=== PATIENT | male | born 1990 | race Two or more races ===

== ENCOUNTER 2020-10-26 23:47 | Emergency (ER) | payer OTHER, SELFPAY ==
[2020-10-27 00:07] VITALS: BP 109/59; PULSE 68; RESP 16; TEMP 36.7; O2SAT 97; BMI 33.4
[2020-10-27 02:00] VITALS: BP 110/88; PULSE 68; RESP 16; TEMP 36.7; O2SAT 97
--- NOTE | 2020-10-27 03:21 | ED.DENTAL ---
HPI - Dental/Oral General Chief complaint: Dental/Oral Stated complaint: Dental Pain Time Seen by Provider: 10/27/20 03:19 Source: patient Mode of arrival: ambulatory History of Present Illness HPI Narrative: 30-year-old male presents with dental pain and noted right lower jaw swelling without trismus and noted partial eruption of right lower wisdom tooth and what appears to be particulate matter underneath the gum tissue likely contributing to patient's symptoms. He otherwise denies any fevers or chills and states that is primary care provider already placed him on antibiotics. Related Data Allergies Allergy/AdvReac Type Severity Reaction Status Date / Time No Known Allergies Allergy Unverified 11/19/19 19:50 [No Known Allergies*] Review of Systems Review of Systems: Pertinent positives and negatives as stated in HPI 10 point review of systems is otherwise negative. PMFSH Past Medical History Source: nursing notes reviewed Social History Social History Alcohol intake: current Patient Tobacco Use Status: Never used Tobacco Use of substances other than those prescribed or required for medical reasons: No Advance Directives: No Advance Directives Information Provided: Yes Physical Exam Vital Signs: Vital Signs: Last Vital Signs Temp 98.0 F 10/27/20 02:00 Pulse 68 10/27/20 02:00 Resp 16 10/27/20 02:00 BP 110/88 10/27/20 02:00 Pulse Ox 97 10/27/20 02:00 Body Mass Index 33.4 VITAL SIGNS: Reviewed. GENERAL: Well developed, well nourished, in no acute distress. HEAD: Normocephalic/atraumatic EYES: PERRLA, EOMI OROPHARYNX: no oral lesions noted, posterior pharynx clear, gum tissue noted to be slightly inflamed at the right lower wisdom tooth with observed particulate matter NECK: Supple, no adenopathy LUNGS: Normal breath sounds. SpO2<97> CARDIOVASCULAR: Regular rate and rhythm without noted murmurs ABDOMEN: Soft, non-tender, non-distended with bowel sounds. NEUROLOGIC: Alert and oriented x 4. Course Course Course Narrative: 30-year-old male with history and clinical presentation consistent with partially erupted right lower wisdom to that appears to have likely food matter accumulated beneath the gum tissue with subsequent development infection. He is currently on antibiotics and was provided with topical ointment for symptom relief and instructed to irrigate underneath the edge of the gum tissue for additional resolution of infection. Discharge Plan Discharge Clinical Impression: Toothache, Dental abscess Patient Disposition: Home, Self-Care Instructions: Dental Abscess (ED), Toothache (ED) Additional Instructions: 1. Resume your already prescribed antibiotics as instructed. 2. Recommend using bqxw-xvu-olszult Tylenol and ibuprofen as needed for additional pain relief. 3. Recommend that you use the syringe and plastic catheter provided to rinse with warm water under the edge of the gum tissue to remove any particulate matter. Return to the ER for acute worsening of any symptoms. Referrals: Physician,Unknown [Primary Care Provider] - 2 days Interventions: ED Discharge Assessment Last Done: 10/27/20 03:20 Discharge Date/Time: 10/27/20 03:29
== END 2020-10-27 03:29 | disposition home or self-care (01) ==
PROVIDERS: Emergency Provider Student in an Organized Health Care Education/Training Program
DX: K04.7 Periapical abscess without sinus (principal); K08.89 Other specified disorders of teeth and supporting structures
CPT/HCPCS: 99282; 99284

== ENCOUNTER 2021-07-04 00:16 | Emergency (ER) | payer MEDICAID, SELFPAY ==
--- NOTE | ~2021-07-04 | XR_ITS ---
EXAMINATION: XR FOOT, LEFT CLINICAL INFORMATION: Pain, swelling, bruising COMPARISON: None TECHNIQUE: AP, lateral, and oblique views of the left foot. FINDINGS: Osseous alignment is anatomic. No acute fracture is seen. No significant focal soft tissue abnormality identified. XR/XR foot LT min 3V IMPRESSION: No acute findings identified.
[2021-07-04 00:26] VITALS: BP 137/72; PULSE 85; RESP 22; TEMP 37.2; O2SAT 99; BMI 36.5
--- NOTE | 2021-07-04 02:07 | ED.LOWEXIN ---
HPI - Extremity Injury (Lower) General Chief Complaint: Extremity Injury, Lower Stated Complaint: foot inj Time Seen by Provider: 07/04/21 02:07 Source: patient Mode of arrival: ambulatory History of Present Illness HPI Narrative: 31-year-old male without past medical history diabetes drop than approximate 50 lb weight on the left great toe earlier at the gym and states he is having significant pain in that foot. Related Data Allergies Allergy/AdvReac Type Severity Reaction Status Date / Time No Known Allergies Allergy Verified 07/04/21 00:30 [No Known Allergies*] Review of Systems Review of Systems: Pertinent positives and negatives as stated in HPI 10 point review of systems otherwise negative. [facility] Past Medical History Source: nursing notes reviewed Social History Social History Alcohol intake: current Patient Tobacco Use Status: Never used Tobacco Advance Directives: No Physical Exam Vital Signs: Vital Signs: Last Vital Signs Temp 98.9 F 07/04/21 00:26 Pulse 85 07/04/21 00:26 Resp 22 H 07/04/21 00:26 BP 137/72 07/04/21 00:26 Pulse Ox 99 07/04/21 00:26 BMI result Body Mass Index 36.5 VITAL SIGNS: Reviewed. GENERAL: Well developed, well nourished, in no acute distress. HEAD: Normocephalic/atraumatic EYES: PERRLA, EOMI EARS: Ext canals without abnormality OROPHARYNX: no oral lesions noted, posterior pharynx clear LUNGS: Normal breath sounds. CARDIOVASCULAR: Regular rate and rhythm without noted murmurs ABDOMEN: Soft, non-tender, non-distended with bowel sounds. MUSCULOSKELETAL: No tenderness, deformities, or effusions noted on gross inspection. EXTREMITIES: No cyanosis, clubbing or edema; LEFT GREAT TOE: Obvious blood between the nail and nailbed SKIN: Inspection of the skin reveals no rashes NEUROLOGIC: Alert and oriented x 4. Course Course Course Narrative: 31-year-old male with history and clinical presentation consistent with blood between at the toenail and nail bed. Able to open a pressure release area on the nail, patient tolerated procedure well and feels much better afterwards. Procedures Nail Trephination Time out: No Location (toes): left Sterile prep: betadine Method of drainage: heated paperclip Procedure successful: Yes Patient tolerated procedure: No Complications Discharge Plan Discharge Clinical Impression: Traumatic subungual hemorrhage of toe Patient Disposition: Home, Self-Care Instructions: Subungual Hematoma (ED) Additional Instructions: 1. Recommend oovk-ykf-exyamov Tylenol/ibuprofen as needed for pain control. 2. Recommend that you soak your foot in warm water with Epsom salt (this is available at every [facility]) at least daily. 3. Follow-up with your primary care provider in the next 2-3 days for re-evaluation. Return to the ER for worsening symptoms. Stand Alone Forms: Work/School Release
[2021-07-04] MEDS: Ibuprofen 400 MG TABLET PO (02:27)
[2021-07-04] MEDS: Acetaminophen 325 MG TABLET 975 MG PO (02:27)
== END 2021-07-04 02:29 | disposition home or self-care (01) ==
PROVIDERS: Emergency Provider Student in an Organized Health Care Education/Training Program
DX: S90.222A Contusion of left lesser toe(s) with damage to nail, initial encounter (principal); M79.672 Pain in left foot; X58.XXXA Exposure to other specified factors, initial encounter; Y93.9 Activity, unspecified; Y92.9 Unspecified place or not applicable; Y99.9 Unspecified external cause status
CPT/HCPCS: 10140; 73630; 99283

== ENCOUNTER 2022-01-18 18:26 | Emergency (ER) | payer OTHER, SELFPAY ==
--- NOTE | ~2022-01-18 | CT_ITS ---
EXAMINATION: CT HEAD WITHOUT CONTRAST CLINICAL INFORMATION: Severe headache COMPARISON: None TECHNIQUE: Imaging was performed from the skull base to vertex without intravenous administration of contrast. This CT examination was performed using dose optimization techniques as appropriate, variously including the following: *Automated exposure control *Adjustment of mA and/or kV according to patient size (this includes techniques or standardized protocols for targeted exams where dose is matched to indication/reason for exam; i.e. extremities or head) *Use of iterative reconstruction technique Total exam dose length product: 831 mGy-cm FINDINGS: No intra or extra-axial fluid collection, hemorrhage, or mass. No ventriculomegaly. No midline shift or herniation. Basal cisterns are patent. Robles-white matter differentiation is maintained. No territorial encephalomalacia. Cavum septum pellucidum noted. No significant volume loss. There is no abnormal attenuation within the brain parenchyma. No calvarial fracture or soft tissue abnormality. Complete opacification of the visualized left maxillary antrum. No hyperostosis. Mastoid air cells normally aerated. CT/CT head/brain wo IV con IMPRESSION: 1. No acute intracranial pathology. 2. Complete opacification of the visualized left maxillary antrum. Correlate clinically with signs or symptoms of maxillary sinusitis.
[2022-01-18 18:41] VITALS: BP 129/73; PULSE 66; RESP 18; TEMP 36.5; O2SAT 97; BMI 33.4
--- NOTE | 2022-01-18 18:41 | ED.HA ---
HPI - Headache General Chief Complaint: Headache Stated Complaint: severe migraine Time Seen by Provider: 01/18/22 22:22 Related Data Previous Rx's Medication Instructions Recorded hpiuivzhxe-uufojafqtacjn-fxofxuiv 1 cap PO Q8H PRN pain #8 caps 01/18/22 50 mg-300 mg-40 mg capsule (Fioricet) Allergies Allergy/AdvReac Type Severity Reaction Status Date / Time No Known Allergies Allergy Verified 07/04/21 00:30 [No Known Allergies*] [facility] Social History Social History Alcohol intake: current Alcohol intake frequency: does not drink Patient Tobacco Use Status: Never used Tobacco Smoked in Last 30 Days: No Use of substances other than those prescribed or required for medical reasons: No Advance Directives: No Advance Directives Information Provided: Yes Physical Exam Vital Signs: Vital Signs: Last Vital Signs Temp 98.7 F 01/18/22 22:24 Pulse 59 01/18/22 22:24 Resp 18 01/18/22 22:24 BP 115/60 01/18/22 22:24 Pulse Ox 99 01/18/22 22:24 O2 Del Method 01/18/22 22:24 BMI result Body Mass Index 33.4 Course Course Course Narrative: RME--31yo M c/o migraine AHUJA x 2 days. Not maximal at onset. Tried Tylenol without relief. Denies taking anticoagulation. Reports loud noises at work exacerbating symptoms. Also reports left neck/shoulder muscular pain for awhile. Denies vision change/loss, nausea, vomiting, numbness/tingling, weakness No meningeal signs, ambulating with steady gait. Fioricet, Zofran, Lidoderm patch ordered in triage Medications Administered Discontinued Medications Generic Name Dose Route Start Last Admin Trade Name Freq PRN Reason Stop Dose Admin Acetaminophen/Butalbital/Caffeine 2 tab 01/18/22 18:42 01/18/22 18:52 Butalb/Acetamin/Caff 50/325/40 Tablet PO 01/18/22 18:43 2 tab ONCE ONE Administration Diphenhydramine HCl 25 mg 01/18/22 22:23 01/18/22 23:30 Diphenhydramine Hcl 50 Mg/Ml Vial IVPUSH 01/18/22 22:24 25 mg ONCE ONE Administration Sodium Chloride 1,000 mls @ 999 mls/hr 01/18/22 22:30 01/18/22 23:31 Ns IV 01/18/22 23:30 999 mls/hr .Q1H1M JILL Administration Ketorolac Tromethamine 30 mg 01/18/22 22:23 01/18/22 23:30 Ketorolac Tromethamine 15 Mg/Ml Vial IVPUSH 01/18/22 22:24 30 mg ONCE ONE Administration Lidocaine 1 patch 01/18/22 18:42 01/18/22 18:53 Lidocaine 4 % Patch Adh..Patch TRANSDERMA 01/18/22 18:43 1 patch ONCE ONE Administration Protocol Metoclopramide HCl 10 mg 01/18/22 22:23 01/18/22 23:31 Metoclopramide Hcl 10 Mg/2 Ml Vial IVPUSH 01/18/22 22:24 10 mg ONCE ONE Administration Ondansetron HCl 4 mg 01/18/22 18:42 01/18/22 18:52 Ondansetron Odt 4 Mg Tab.Rapdis TRANSLINGU 01/18/22 18:43 4 mg ONCE ONE Administration MDM - Headache Lab Data Result diagrams: 01/18/22 22:35 01/18/22 22:35 Labs: Lab Results 01/18/22 01/18/22 01/18/22 Range/Units 22:35 22:35 22:35 WBC 7.8 (4.8-10.8) X10*3/uL RBC 4.96 (4.60-5.80) X10*6/uL Hgb 14.4 (14.0-18.0) g/dl Hct 42.7 (42.0-52.0) % MCV 86.1 (80.0-98.0) fL MCH 29.0 (27.0-33.0) pg MCHC 33.7 (31.0-36.0) g/dl RDW 12.6 (11.0-16.0) % Plt Count 267 (160-400) X10*3/uL MPV 9.6 (9.4-12.4) fL Immature Gran % (Auto) 0.1 (0.0-0.4) % Neut % (Auto) 56.2 (45-73) % Lymph % (Auto) 32.0 (20-40) % [place] % (Auto) 9.2 (2-11) % Eos % (Auto) 2.1 (0-4) % Baso % (Auto) 0.4 (0-2) % Lymph # (Auto) 2.5 (1.2-4.9) X10*3/uL [place] # (Auto) 0.7 (0.1-1.2) X10*3/uL Eos # (Auto) 0.2 (0.0-0.4) X10*3/uL Baso # (Auto) 0.0 (0.0-0.2) X10*3/uL Abs Immat Gran (auto) 0.01 (0.00-0.03) X10*3/uL Absolute Neuts (auto) 4.4 (2.0-8.3) x10*3/uL Absolute Nucleated RBC 0.000 (0.0-0.012) X10*3/uL Nucleated RBC % (auto) 0.0 (0.0-0.2) /100WBC ESR 2 (0-15) MM/HR Sodium 140 (135-145) mmol/L Potassium 4.0 (3.3-5.1) mmol/L Chloride 104 (96-108) mmol/L Carbon Dioxide 27 (22-29) mmol/L Anion Gap 13 (12-20) BUN 20 H (9-16) mg/dL Creatinine 1.35 (0.5-1.4) mg/dL Estim Creat Clear Calc 91.6 Estimated GFR > 60 Random Glucose 91 (60-115) mg/dL Calcium 9.2 (8.4-10.2) mg/dL Magnesium 2.0 (1.6-2.6) mg/dL Total Bilirubin 1.0 (0.0-1.0) mg/dL AST 30 (5-37) U/L ALT 24 (0-40) U/L Alkaline Phosphatase 53 (39-117) U/L C-Reactive Protein 0.05 (< or = 0.50) mg/dL Total Protein 6.7 (6.5-8.0) g/dL Albumin 4.2 (3.5-5.0) g/dL COVID-19 (GIL) (Negative) COVID-19 Clin Com 01/18/22 Range/Units 22:35 WBC (4.8-10.8) X10*3/uL RBC (4.60-5.80) X10*6/uL Hgb (14.0-18.0) g/dl Hct (42.0-52.0) % MCV (80.0-98.0) fL MCH (27.0-33.0) pg MCHC (31.0-36.0) g/dl RDW (11.0-16.0) % Plt Count (160-400) X10*3/uL MPV (9.4-12.4) fL Immature Gran % (Auto) (0.0-0.4) % Neut % (Auto) (45-73) % Lymph % (Auto) (20-40) % [place] % (Auto) (2-11) % Eos % (Auto) (0-4) % Baso % (Auto) (0-2) % Lymph # (Auto) (1.2-4.9) X10*3/uL [place] # (Auto) (0.1-1.2) X10*3/uL Eos # (Auto) (0.0-0.4) X10*3/uL Baso # (Auto) (0.0-0.2) X10*3/uL Abs Immat Gran (auto) (0.00-0.03) X10*3/uL Absolute Neuts (auto) (2.0-8.3) x10*3/uL Absolute Nucleated RBC (0.0-0.012) X10*3/uL Nucleated RBC % (auto) (0.0-0.2) /100WBC ESR (0-15) MM/HR Sodium (135-145) mmol/L Potassium (3.3-5.1) mmol/L Chloride (96-108) mmol/L Carbon Dioxide (22-29) mmol/L Anion Gap (12-20) BUN (9-16) mg/dL Creatinine (0.5-1.4) mg/dL Estim Creat Clear Calc Estimated GFR Random Glucose (60-115) mg/dL Calcium (8.4-10.2) mg/dL Magnesium (1.6-2.6) mg/dL Total Bilirubin (0.0-1.0) mg/dL AST (5-37) U/L ALT (0-40) U/L Alkaline Phosphatase (39-117) U/L C-Reactive Protein (< or = 0.50) mg/dL Total Protein (6.5-8.0) g/dL Albumin (3.5-5.0) g/dL COVID-19 (GIL) Negative (Negative) COVID-19 Clin Com See Note Discharge Plan Discharge Clinical Impression: Headache Patient Disposition: Home, Self-Care Instructions: General Headache (ED) Additional Instructions: Take your medications as prescribed. If you were prescribed antibiotics today, it is important that you take your medication to their entirety, do not skip any doses, do not finish them early. Follow-up with your primary care provider this week. Follow-up with neurology information below Return to the emergency department with new or worsening symptoms. Such as fevers, chills, chest pain, shortness of breath, nausea, vomiting, dizziness, headache, vision changes, lethargy, vision changes, worsening pain, dizziness, facial droop, changes in speech In case of emergency call 911 Prescriptions: New mixkwkklcr-zddieuibjpkia-tkbe [Fioricet] 50-300-40 mg capsule 1 cap PO Q8H PRN (Reason: pain) Qty: 8 0RF [place] [facility] [facility] [place] Group] - 1 week Physician,None [Primary Care Provider] - 2 days Stand Alone Forms: Work/School Release Interventions: ED Discharge Assessment Last Done: 01/19/22 00:35 Discharge Date/Time: 01/19/22 00:36
[2022-01-18] MEDS: Butalb/Acetamin/Caff 50/325/40 TABLET 2 TAB PO (18:52)
[2022-01-18] MEDS: Ondansetron ODT 4 MG TAB.RAPDIS TRANSLINGU (18:52)
[2022-01-18] MEDS: Lidocaine 4 % Patch ADH..PATCH 1 PATCH TRANSDERMA (18:53)
[2022-01-18 22:24] VITALS: BP 115/60; PULSE 59; RESP 18; TEMP 37.1; O2SAT 99
--- NOTE | 2022-01-18 22:29 | ED.HA ---
HPI - Headache General Chief Complaint: Headache Stated Complaint: severe migraine Time Seen by Provider: 01/18/22 22:22 Source: patient Mode of arrival: ambulatory Limitations: no limitations History of Present Illness HPI Narrative: 31-year-old male with no pertinent past medical history presents to the emergency department with a headache that has been going on for the past 2 days. No associated aura. No known trauma. Headache is is located bilaterally in the occipital region and described as pulsatile initially / until he recieved fioricet in triage now 04/13. No prior history of migraines. Took Tylenol at home, offered minimal relief. Works in a factory with loud noises. Deniees fevers chills, dizziness, vision changes, trauma, neck pain, disequilibrium, chest pain, shortness of breath. Related Data Previous Rx's Medication Instructions Recorded lknqliujar-guhlbwquadzxj-knumohcb 1 cap PO Q8H PRN pain #8 caps 01/18/22 50 mg-300 mg-40 mg capsule (Fioricet) Allergies Allergy/AdvReac Type Severity Reaction Status Date / Time No Known Allergies Allergy Verified 07/04/21 00:30 [No Known Allergies*] Review of Systems Review of Systems: Constitutional : No Weight loss, No Fever, No Chills, No Fatigue, No Malaise ENT/Mouth : No sore throat, No Rhinorrhea Eyes: No Eye Pain, No Swelling, No Redness Cardiovascular : No Chest Pain, No SOB, No Dyspnea on Exertion, No Orthopnea, No Edema, No Palpitations Respiratory : No Cough, No Sputum, No Wheezing Gastrointestinal : No Nausea, No Vomiting, No Diarrhea, No Constipation, No abdominal Pain, No Hematochezia, No Melena Genitourinary : No Dysuria, No Urinary Frequency, No Hematuria, Musculoskeletal : No joint pain, No Myalgias, No Joint Swelling Skin : No Skin Lesions, No rash Neuro : No Weakness, No Numbness, No Dizziness, + Headache Psych : No Anxiety/Panic, No Depression All other systems reviewed and are negative Yes all other systems are reviewed and are negative [facility] Past Medical History Attestation statement: The following information was validated with the patient. Source: old records reviewed and nursing notes reviewed Social History Social History Alcohol intake: current Patient Tobacco Use Status: Never used Tobacco Advance Directives: No Advance Directives Information Provided: Yes Physical Exam Vital Signs: Vital Signs: Last Vital Signs Temp 98.7 F 01/18/22 22:24 Pulse 59 01/18/22 22:24 Resp 18 01/18/22 22:24 BP 115/60 01/18/22 22:24 Pulse Ox 99 01/18/22 22:24 O2 Del Method 01/18/22 22:24 BMI result Body Mass Index 33.4 vss Appearance: Alert.? Oriented X3.? No acute distress.? Head: Normocephalic, atraumatic, no step-offs or deformities Eyes: Pupils equal, round and reactive to light.? Neck: Normal inspection.? Neck supple.? No meningeal signs negative Kernig and Brudzinski CVS: Normal heart rate and rhythm.? Pulses normal.? Respiratory: No respiratory distress.? Breath sounds normal.? Abdomen: Soft and nontender.? Skin: Skin warm and dry.? Normal skin color.? Normal skin turgor.? Extremities: No lower extremity edema.? No calf ttp. 5/5 strength to bilateral upper and lower extremities Neuro: Oriented X 3.? No motor deficit.? No sensory deficit. CN 2-12 intact . Ambulating with steady gait normal coordination. Normal qplihf-wf-nmuy, gzxt-tt-bybe. Following commands. Negative pronator drift and Romberg. Course Reevaluation(s) Reevaluation #1: CBC appears to be within normal limits. Chemistry with no acute electrolyte abnormalities requiring intervention. Head CT with no acute acute intracranial pathology, complete opacification of the left maxillary antrum however patient with no signs or symptoms of sinusitis. COVID negative. Time: 23:15 Reevaluation #2: Patient feeling better, improvement of symptoms. Sleeping restfully. Neurological examination remains intact, cerebellar intact. At this time patient will be discharged home. Advised to return with new or worsening symptoms. Will be discharged on Fioricet. Educated on worrisome signs and symptoms and when to return. At time of discharge patient tells me his symptoms have completely resolved. Neuro remains nonfocal. Ambulating with steady gait normal coordination. At this time I feel comfortable discharge. Time: 00:20 Medications Administered Discontinued Medications Generic Name Dose Route Start Last Admin Trade Name Freq PRN Reason Stop Dose Admin Acetaminophen/Butalbital/Caffeine 2 tab 01/18/22 18:42 01/18/22 18:52 Butalb/Acetamin/Caff 50/325/40 Tablet PO 01/18/22 18:43 2 tab ONCE ONE Administration Diphenhydramine HCl 25 mg 01/18/22 22:23 01/18/22 23:30 Diphenhydramine Hcl 50 Mg/Ml Vial IVPUSH 01/18/22 22:24 25 mg ONCE ONE Administration Sodium Chloride 1,000 mls @ 999 mls/hr 01/18/22 22:30 01/18/22 23:31 Ns IV 01/18/22 23:30 999 mls/hr .Q1H1M JILL Administration Ketorolac Tromethamine 30 mg 01/18/22 22:23 01/18/22 23:30 Ketorolac Tromethamine 15 Mg/Ml Vial IVPUSH 01/18/22 22:24 30 mg ONCE ONE Administration Lidocaine 1 patch 01/18/22 18:42 01/18/22 18:53 Lidocaine 4 % Patch Adh..Patch TRANSDERMA 01/18/22 18:43 1 patch ONCE ONE Administration Protocol Metoclopramide HCl 10 mg 01/18/22 22:23 01/18/22 23:31 Metoclopramide Hcl 10 Mg/2 Ml Vial IVPUSH 01/18/22 22:24 10 mg ONCE ONE Administration Ondansetron HCl 4 mg 01/18/22 18:42 01/18/22 18:52 Ondansetron Odt 4 Mg Tab.Rapdis TRANSLINGU 01/18/22 18:43 4 mg ONCE ONE Administration MDM - Headache MDM Narrative Medical decision making narrative: 2219 31-year-old male presents with headache, no history of headaches. Initially was severe 10/10 was given for sent triage now 2/10, throbbing. No aura. No head trauma. Physical examination benign normal neuro exam, cerebellar function intact. Likely headache versus complex migraine. Unlikely intracranial hemorrhage, stroke, posterior stroke. Unlikely temporal arteritis/giant cell arteritis. Plan at this time is labs, imaging as patient does not typically headaches and describes it as severe, sudden. Will obtain inflammatory markers. Will medicate with Reglan, Benadryl and Toradol. Medical Records Attestation: I reviewed the patient's medical records. Lab Data Attestation: I reviewed the patient's lab results. Result diagrams: 01/18/22 22:35 01/18/22 22:35 Labs: Lab Results 01/18/22 01/18/22 01/18/22 Range/Units 22:35 22:35 22:35 WBC 7.8 (4.8-10.8) X10*3/uL RBC 4.96 (4.60-5.80) X10*6/uL Hgb 14.4 (14.0-18.0) g/dl Hct 42.7 (42.0-52.0) % MCV 86.1 (80.0-98.0) fL MCH 29.0 (27.0-33.0) pg MCHC 33.7 (31.0-36.0) g/dl RDW 12.6 (11.0-16.0) % Plt Count 267 (160-400) X10*3/uL MPV 9.6 (9.4-12.4) fL Immature Gran % (Auto) 0.1 (0.0-0.4) % Neut % (Auto) 56.2 (45-73) % Lymph % (Auto) 32.0 (20-40) % [place] % (Auto) 9.2 (2-11) % Eos % (Auto) 2.1 (0-4) % Baso % (Auto) 0.4 (0-2) % Lymph # (Auto) 2.5 (1.2-4.9) X10*3/uL [place] # (Auto) 0.7 (0.1-1.2) X10*3/uL Eos # (Auto) 0.2 (0.0-0.4) X10*3/uL Baso # (Auto) 0.0 (0.0-0.2) X10*3/uL Abs Immat Gran (auto) 0.01 (0.00-0.03) X10*3/uL Absolute Neuts (auto) 4.4 (2.0-8.3) x10*3/uL Absolute Nucleated RBC 0.000 (0.0-0.012) X10*3/uL Nucleated RBC % (auto) 0.0 (0.0-0.2) /100WBC ESR 2 (0-15) MM/HR Sodium 140 (135-145) mmol/L Potassium 4.0 (3.3-5.1) mmol/L Chloride 104 (96-108) mmol/L Carbon Dioxide 27 (22-29) mmol/L Anion Gap 13 (12-20) BUN 20 H (9-16) mg/dL Creatinine 1.35 (0.5-1.4) mg/dL Estim Creat Clear Calc 91.6 Estimated GFR > 60 Random Glucose 91 (60-115) mg/dL Calcium 9.2 (8.4-10.2) mg/dL Magnesium 2.0 (1.6-2.6) mg/dL Total Bilirubin 1.0 (0.0-1.0) mg/dL AST 30 (5-37) U/L ALT 24 (0-40) U/L Alkaline Phosphatase 53 (39-117) U/L C-Reactive Protein 0.05 (< or = 0.50) mg/dL Total Protein 6.7 (6.5-8.0) g/dL COVID-19 (GIL) (Negative) COVID-19 Clin Com 01/18/22 Range/Units 22:35 WBC (4.8-10.8) X10*3/uL RBC (4.60-5.80) X10*6/uL Hgb (14.0-18.0) g/dl Hct (42.0-52.0) % MCV (80.0-98.0) fL MCH (27.0-33.0) pg MCHC (31.0-36.0) g/dl RDW (11.0-16.0) % Plt Count (160-400) X10*3/uL MPV (9.4-12.4) fL Immature Gran % (Auto) (0.0-0.4) % Neut % (Auto) (45-73) % Lymph % (Auto) (20-40) % [place] % (Auto) (2-11) % Eos % (Auto) (0-4) % Baso % (Auto) (0-2) % Lymph # (Auto) (1.2-4.9) X10*3/uL [place] # (Auto) (0.1-1.2) X10*3/uL Eos # (Auto) (0.0-0.4) X10*3/uL Baso # (Auto) (0.0-0.2) X10*3/uL Abs Immat Gran (auto) (0.00-0.03) X10*3/uL Absolute Neuts (auto) (2.0-8.3) x10*3/uL Absolute Nucleated RBC (0.0-0.012) X10*3/uL Nucleated RBC % (auto) (0.0-0.2) /100WBC ESR (0-15) MM/HR Sodium (135-145) mmol/L Potassium (3.3-5.1) mmol/L Chloride (96-108) mmol/L Carbon Dioxide (22-29) mmol/L Anion Gap (12-20) BUN (9-16) mg/dL Creatinine (0.5-1.4) mg/dL Estim Creat Clear Calc Estimated GFR Random Glucose (60-115) mg/dL Calcium (8.4-10.2) mg/dL Magnesium (1.6-2.6) mg/dL Total Bilirubin (0.0-1.0) mg/dL AST (5-37) U/L ALT (0-40) U/L Alkaline Phosphatase (39-117) U/L C-Reactive Protein (< or = 0.50) mg/dL Total Protein (6.5-8.0) g/dL COVID-19 (GIL) Negative (Negative) COVID-19 Clin Com See Note Critical Care Time Critical Care Time Critical Care Time: No Discharge Plan Discharge Clinical Impression: Headache Patient Disposition: Home, Self-Care Instructions: General Headache (ED) Additional Instructions: Take your medications as prescribed. If you were prescribed antibiotics today, it is important that you take your medication to their entirety, do not skip any doses, do not finish them early. Follow-up with your primary care provider this week. Follow-up with neurology information below Return to the emergency department with new or worsening symptoms. Such as fevers, chills, chest pain, shortness of breath, nausea, vomiting, dizziness, headache, vision changes, lethargy, vision changes, worsening pain, dizziness, facial droop, changes in speech In case of emergency call 911 Prescriptions: New xxbcscitkh-tbkczbxuxjqno-lexe [Fioricet] 50-300-40 mg capsule 1 cap PO Q8H PRN (Reason: pain) Qty: 8 0RF Referrals: [facility] [place] [Provider Group] - 1 week Physician,None [Primary Care Provider] - 2 days Stand Alone Forms: Work/School Release
--- OUTSIDE RECORDS SUMMARY | 2022-01-18 22:38 | XMS_ITS | Encounter Summary ---
:1990 Author Organization [facility] Address [address] [place] [id number] Support Name Relationship Address Phone ONE, NO Unavailable Unavailable Unavailable ONE, NO Unavailable Unavailable Unavailable Selected Encounter This section includes the information on record at [place] for the Encounter. Date/Time Encounter Type Encounter Reason Provider Source Description Feb 21, 2021 ADM [id number] PRIMARY ICD-10-CM Z23 CARMINE FRANCO 01:00 PM 100MCG/0.5ML2ND CARE/MEDICINE Encounter for A immunization with Provider Comments: Encounter for Immunization IHE Encounter Template Text not used by [facility] Assessments - Encounter Diagnoses This section includes the primary and secondary diagnoses documented for the Encounter. Date/Time Primary/Secondary Diagnosis Name Provider Source Diagnosis Feb 21, 2021 PRIMARY Encounter for JAYLON FRANCO 01:09 PM immunization Plan of Treatment: Future Appointments (+ 6 months) and Future Tests (+/- 45 days) The Plan of Treatment section includes future care activities for the patient from all [place] treatmentfacilities. This section includes future appointments and future orders which are active, pending orscheduled.Active, Pending, and Scheduled Orders This section includes a listing of several types of active, pending, and scheduled orders, including clinic medications orders, diagnostic test orders, procedure orders and consult orders; where the start date of the order is 45 days before the date of the Encounter or 45 days after the date of the Encounter. The data comes from all [place] treatment facilities. Test Date/Time Test Type Test Details Facility Name Feb 21, 2021 12:00 AM Laboratory - Chemistry CBC BLOOD (LAV-BLOO D) [facility] Order Feb 21, 2021 12:00 AM Laboratory - Chemistry URINALYSIS URINE [facility] Order Feb 21, 2021 12:00 AM Laboratory - Chemistry BASIC METABOLIC [facility] Order (fasting) BLOOD (SST-SERUM) Feb 21, 2021 12:00 AM Laboratory - Chemistry LIVER FUNCTION BLOO D [place] Order (SST-SERUM) SP Feb 21, 2021 12:00 AM Laboratory - Chemistry LIPID PANEL FASTING [facility] BLOOD (SST-SERUM) SP Feb 21, 2021 12:00 AM Laboratory - Chemistry CALCIUM BLOOD SPR [facility] Order (SST-SERUM) SP Feb 21, 2021 12:00 AM Laboratory - Chemistry URIC ACID BLOOD SPR [facility] Order (SST-SERUM) SP Feb 21, 2021 12:00 AM Laboratory - Chemistry VITAMIN D (25-OH) B LOOD [place] Order (SST-SERUM) SP ONCE Feb 21, 2021 12:00 AM Laboratory - Chemistry FERRITIN BLOOD SPR [facility] Order (SST-SERUM) SP Feb 21, 2021 12:00 AM Laboratory - Chemistry TSH BLOOD (SST-SERU M) SP [facility] Feb 21, 2021 12:00 AM Laboratory - Chemistry MAGNESIUM BLOOD SPR [facility] Order (SST-SERUM) SP Feb 21, 2021 12:00 AM Laboratory - Chemistry TESTOSTERONE, TOTAL [facility] BLOOD (RED-PLAIN) [facility] SP Feb 21, 2021 12:00 AM Laboratory - Chemistry TESTOSTERONE-FREE ( qu) [facility] BLOOD (RED-PLAIN) [facility] SP Immunizations: All administered on the encounter date This section contains immunizations associated to the Encounter. Immunization Series Date Issued Reaction Comments COVID-19 (MODERNA), MRNA, 2 Feb 21, 2021 MO D; [id number]; 06/07/2021 LNP-S, PF, 100 MCG OR 50 MCG DOSE Social History: Smoking Status (Most current) and Tobacco Use (All prior to encounter date) This section includes the most current, and the historical, smoking and tobacco-related health factors from the [place] facility where the Encounter took place.Current Smoking Status This section includes the most current smoking, or tobacco-related health factor, from the [place] facility where the Encounter took place. Date/Time Current Smoking Status Comment Facility Dec 22, 2020 11:00 AM [place]-TOBACCO NEVER USED [facility] Encounter Notes: All associated encounter notes This section contains the clinical notes associated to the Encounter. Date/Time Encounter Note(s) Provider Source Feb 21, 2021 01:08 PM PREVENTIVE MEDICINE NURSING NOTE: Loulou FRANCO [place] LOCAL TITLE: CLINICAL REMINDERS/NURSING STANDARD TITLE: PREVENTIVE MEDICINE NURSING NOTE DATE OF NOTE: FEB 21, 2021@13:08 ENTRY DATE: FEB 21, 2021@13:08:55 AUTHOR: JAYLON FRANCO EXP COSIGNER: URGENCY: STATUS: COMPLETED COVID-19 Immunization: The patient was given the EUA fact sheet for th is vaccine which lists the benefits and side effects of the vaccine and [facility] reviews the risks of the vaccine. The fact sheet was reviewed with the p atient and they were given an opportunity to ask questions. The patient de nied any prior severe reaction to this vaccine or its components or a severe allergic reaction such as anaphylaxis to any vaccine or to any in jectable therapy. The patient gave verbal consent to receive the vacc ine. Dose #2 The patient received Moderna COVID-19 Vaccine 0 .5 ml IM. MVX (Manuf); Lot#; Exp Date: MOD; [id number]; 08/2021 Administration Anatomic site: Left Deltoid Vaccine administered without complications. The patient was advised to remain in the facility for 15 minutes post vacc ination. The patient was given a completed COVID-19 vaccination record [place], a copy of the [facility] Side Effects and Adverse Events Reporting Fact Sheet and instructed on how to report any adverse reactions. /chikis/ Jaylon Franco RN, MSN-CNL [facility] RN Signed: 02/21/2021 13:09
--- OUTSIDE RECORDS SUMMARY | 2022-01-18 22:38 | XMS_ITS | Encounter Summary ---
:1990 Author Organization [facility] Address [address] [place] [id number] Support Name Relationship Address Phone ONE, NO Unavailable Unavailable Unavailable ONE, NO Unavailable Unavailable Unavailable Selected Encounter This section includes the information on record at [place] for the Encounter. Date/Time Encounter Type Encounter Description Reason Provider Source Jan 20, 2021 01:00 Outpatient [facility] Encounter Template Text not used by [facility] Plan of Treatment: Future Appointments (+ 6 months) and Future Tests (+/- 45 days) The Plan of Treatment section includes future care activities for the patient from all [place] treatmentfacilities. This section includes future appointments and future orders which are active, pending orscheduled.Future Appointments This section includes appointments that were scheduled to occur 6 months from the date of the Encounter, up to a maximum of 20 appointments. The data comes from all [place] treatment facilities. Appointment Date/Time Appointment Type Appointment Facili ty Name Feb 07, 2021 01:00 PM [facility] Feb 21, 2021 01:00 PM [facility] Active, Pending, and Scheduled Orders This section includes a listing of several types of active, pending, and scheduled orders, including clinic medications orders, diagnostic test orders, procedure orders and consult orders; where the start date of the order is 45 days before the date of the Encounter or 45 days after the date of the Encounter. The data comes from all [place] treatment [facility]. Test Date/Time Test Type Test Details Facility Name Feb 21, 2021 12:00 AM Laboratory - Chemistry CBC BLOOD (LAV-BLOO D) [facility] Order Feb 21, 2021 12:00 AM Laboratory - Chemistry URINALYSIS URINE [facility] Order Feb 21, 2021 12:00 AM Laboratory - Chemistry BASIC METABOLIC [facility] Order (fasting) BLOOD (SST-SERUM) Feb 21, 2021 12:00 AM Laboratory - Chemistry LIVER FUNCTION BLOO D [place] Order (SST-SERUM) Feb 21, 2021 12:00 AM Laboratory - Chemistry LIPID PANEL FASTING [facility] BLOOD (SST-SERUM) Feb 21, 2021 12:00 AM Laboratory - Chemistry CALCIUM BLOOD SPR [facility] Order (SST-SERUM) Feb 21, 2021 12:00 AM Laboratory - Chemistry URIC ACID BLOOD SPR [facility] Order (SST-SERUM) Feb 21, 2021 12:00 AM Laboratory - Chemistry VITAMIN D (25-OH) B LOOD [place] Order (SST-SERUM) SP ONCE Feb 21, 2021 12:00 AM Laboratory - Chemistry FERRITIN BLOOD SPR [facility] Order (SST-SERUM) Feb 21, 2021 12:00 AM Laboratory - Chemistry TSH BLOOD (SST-SERU M) SP [facility] Feb 21, 2021 12:00 AM Laboratory - Chemistry MAGNESIUM BLOOD SPR [facility] Order (SST-SERUM) Feb 21, 2021 12:00 AM Laboratory - Chemistry TESTOSTERONE, TOTAL [place] Order BLOOD (RED-PLAIN) [facility] Feb 21, 2021 12:00 AM Laboratory - Chemistry TESTOSTERONE-FREE ( qu) [facility] BLOOD (RED-PLAIN) [facility] Social History: Smoking Status (Most current) and Tobacco Use (All prior to encounter date) This section includes the most current, and the historical, smoking and tobacco-related health factors from the [place] facility where the Encounter took place.Current Smoking Status This section includes the most current smoking, or tobacco-related health factor, from the [place] facility where the Encounter took place. Date/Time Current Smoking Status Comment Facility Dec 22, 2020 11:00 AM [place]-TOBACCO NEVER USED [facility] Encounter Notes: All associated encounter notes This section contains the clinical notes associated to the Encounter. Date/Time Encounter Note(s) Provider Source Jan 20, 2021 01:15 PM MENTAL HEALTH COMMUNICATION NOTE: BROOKLYN LATIF LOCAL TITLE: PRIMARY MENTAL HEALTH CONTACT NOTE STANDARD TITLE: MENTAL HEALTH COMMUNICATION NOTE DATE OF NOTE: JAN 20, 2021@13:15 ENTRY DATE: JAN 20, 2021@13:47:51 AUTHOR: BROOKLYN LATIF EXP COSIGNER: URGENCY: STATUS: COMPLETED Reached regarding no-show, no-ca ll at 1pm in [facility] today. He states he has scheduling issues that have interfered with appointments. He declines an appointment for now, and [facility] he wishes to schedule an appointment in [facility]. /chikis/ BROOKLYN LATIF PSYD CLINICAL PSYCHOLOGIST Signed: 01/20/2021 13:49
--- OUTSIDE RECORDS SUMMARY | 2022-01-18 22:38 | XMS_ITS | Encounter Summary ---
:1990 Author Organization [facility] Address [address] [place] [id number] Support Name Relationship Address Phone ONE, NO Unavailable Unavailable Unavailable ONE, NO Unavailable Unavailable Unavailable Selected Encounter This section includes the information on record at [place] for the Encounter. Date/Time Encounter Type Encounter Description Reason Provider Source Feb 21, 2021 01:23 Outpatient Encounter PRIMARY CARE/MEDICINE PM IHE Encounter Template Text not used by [place] Plan of Treatment: Future Appointments (+ 6 months) and Future Tests (+/- 45 days) The Plan of Treatment section includes future care activities for the patient from all [place] treatmentfacilities. This section includes future appointments and [...] the Encounter. The data comes from all [place] treatment facilities. Test Date/Time Test Type Test Details Facility Name Feb 21, 2021 12:00 AM Laboratory - Chemistry CBC BLOOD (LAV-BLOO D) [facility] Order Feb 21, 2021 12:00 AM Laboratory - Chemistry URINALYSIS URINE [facility] Order Feb 21, 2021 12:00 AM Laboratory - Chemistry BASIC METABOLIC [facility] Order (fasting) BLOOD (SST-SERUM) Feb 21, 2021 12:00 AM Laboratory - Chemistry LIVER FUNCTION BLOO D [facility] Order (SST-SERUM) Feb 21, 2021 12:00 AM Laboratory - Chemistry LIPID PANEL FASTING [facility] Order BLOOD (SST-SERUM) Feb 21, 2021 12:00 AM Laboratory - Chemistry CALCIUM BLOOD SPR [facility] Order (SST-SERUM) SP Feb 21, 2021 12:00 AM Laboratory - Chemistry URIC ACID BLOOD SPR [facility] Order (SST-SERUM) SP Feb 21, 2021 12:00 AM Laboratory - Chemistry VITAMIN D (25-OH) B LOOD [facility] Order (SST-SERUM) SP ONCE Feb 21, 2021 12:00 AM Laboratory - Chemistry FERRITIN BLOOD SPR [facility] Order (SST-SERUM) SP Feb 21, 2021 12:00 AM Laboratory - Chemistry TSH BLOOD (SST-SERU M) SP [facility] Order Feb 21, 2021 12:00 AM Laboratory - Chemistry MAGNESIUM BLOOD SPR [facility] Order (SST-SERUM) SP Feb 21, 2021 12:00 AM Laboratory - Chemistry TESTOSTERONE, TOTAL [facility] Order BLOOD (RED-PLAIN) [facility] SP Feb 21, 2021 12:00 AM Laboratory - Chemistry TESTOSTERONE-FREE ( qu) [facility] BLOOD (RED-PLAIN) [facility] SP Social History: Smoking Status (Most current) and Tobacco Use (All prior to encounter date) This section includes the most current, and the historical, smoking and tobacco-related health factors from the [place] facility where the Encounter took place.Current Smoking Status This section includes the most current smoking, or tobacco-related health factor, from the [place] facility where the Encounter took place. Date/Time Current Smoking Status Comment Facility Sep 21, 2017 12:01 PM LIFETIME NON-TOBACCO USER [place] [facility] Encounter Notes: All associated encounter notes This section contains the clinical notes associated to the Encounter. Date/Time Encounter Note(s) Provider Source Feb 21, 2021 01:23 PM PRIMARY CARE NOTE: BRANDI RUIZ [facility] LOCAL TITLE: WALK-IN NOTE PRIMARY CARE (T) STANDARD TITLE: PRIMARY CARE NOTE DATE OF NOTE: FEB 21, 2021@13:23 ENTRY DATE: FEB 21, 2021@13:23:14 AUTHOR: BRANDI RUIZ EXP COSIGNER: URGENCY: STATUS: COMPLETED <====Click to Start Advanced Medical Support Corral presents to the Primary Care clinic with the following request: [ ]Medication Renewal/Refill [ ]Consultation with Team RN [ ]Symptoms [ X ]Other CHIROPRACTIC VISITS The states they are: [ ]Waiting [ X ]Not Waiting No Walk in visit scheduled with PACT Nurse [ X ] At this encounter the 's demographi cs were verified. [ X ] At this encounter the 's Insurance information was verified. [ X ] At this encounter the below scheduled visi ts for the were discussed and appointment reminder card wa s offered. Future appointments: No data available presents to clinic and has used his 12 v isits for chiropractor. He would like more visits /es/ BRANDI RUIZ ADVANCED MUSIC DIRECTOR Signed: 02/21/2021 13:25 Receipt Acknowledged By: * AWAITING SIGNATURE * JACLYN KING * AWAITING SIGNATURE * LUIS SELBY * AWAITING SIGNATURE * FLORENCE YOUNG
--- OUTSIDE RECORDS SUMMARY | 2022-01-18 22:38 | XMS_ITS | Continuity of Care Document ---
:1990 Author Organization [facility] Address [address] [place] [address]- Care Team Providers Name Role Phone Rach RETSREPO, Isaac W Primary Care Physician [place] [facility] Date(s): 06/13/20 - 06/13/[address] [address]- Discharge Disposition: A-D/C Home Attending Physician: Sheldon Jama MD Admitting Physician: Sheldon Jama MD Referring Physician: Not on Staff, Referring MD Allergies, Adverse Reactions, Alerts Substance Reaction Severity Status NKA Active Medications ibuprofen 600 mg oral tablet 600 mg, 1, tablet, By Mouth, Every 6 hours, # 30 tablet, Refills 0, Tot. Refills 0, Maintenance, 06/13/20 21:43:00 EDT, Route to Pharmacy Electronically, [id number], Partial fill upon patient request if the prescription is for a sched... Start Date: 06/13/20 Status: OrderedValium 5 mg oral tablet 5 mg, 1, tablet, By Mouth, 3 times a day, PRN, # 12 tablet, Refills 0, Tot. Refills 0, Maintenance, Pain , Moderate, 06/13/20 21:43:00 EDT, Route to Pharmacy Electronically, [facility] #[id number], Partial fill upon patient request if the prescri... Start Date: 06/13/20 Status: Ordered Results Radiology Reports Exam Date Time Procedure Performing Provider Status 06/13/20 7:41 PM Cervical Spine 3 Views or Less Kristy Landa 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 FINDINGS: There is mild reversal of the normal cervical lordosis with no significant subluxation. Well preserved disc and vertebral body morphology. No bone lesions or fractures. Normal C1/2 relationship. Normal prevertebral soft tissues and clear lung apices. IMPRESSION: 1. No acute fracture or subluxation. 2. Mild reversal of the normal cervical lordosis, which may be positional or may be related to muscle spasm. WSN: [id number] Ordering Physician: Angelique Coley Dictated By: Blessing Mead MD Dictated Date/Time: 06/13/20 7:59 pm Reviewed By: Blessing Mead MD Signed By: Blessing Mead MD Signed Date/Time: 06/13/20 7:59 pm Transcribed By: KENDELL Transcribed Date/Time: 06/13/20 7:57 pm Vital Signs Most recent to oldest [Reference Range]: 1 2 Oxygen Saturation [94-100 %] 98 % 98 % (06/13/20 9:02 PM) (06/13/20 5:08 PM) Pulse Rate [55-90 bpm] 62 bpm 69 bpm (06/13/20 9:02 PM) (06/13/20 5:08 PM) Blood Pressure [90-138/55-84 mm Hg] 140/58 mm Hg 110/ 49 mm Hg *H* (06/13/20 5:08 PM) (06/13/20 9:02 PM) Respiratory Rate [16-30 br/min] 20 br/min 20 br/mi n (06/13/20 9:02 PM) (06/13/20 5:08 PM) Temperature [96.8-100.4 DegF] 98.8 DegF 98 DegF (06/13/20 9:02 PM) (06/13/20 5:08 PM) Mode of Delivery (Oxygen) Room air Room air (06/13/20 9:02 PM) (06/13/20 5:08 PM) Blood pressure sites Arm, left Arm, left (06/13/20 9:02 PM) (4/12/21 5:08 PM) Temperature Route Oral Oral (06/13/20 9:02 PM) (06/13/20 5:08 PM) Social History Social History Type Response Smoking Status Former smoker; Type: Cigaret abby; Tobacco use times per day: 3 cigerattes a year.; Started at age: 21; entered on: 07/20/13 Sex
--- OUTSIDE RECORDS SUMMARY | 2022-01-18 22:38 | XMS_ITS | Continuity of Care Document ---
:[address] [facility] Care Team Providers Name Role Phone [facility] Unavailable Unavailable Problems Combined list of problems from Department of Defense and Veterans Affairs facilities. It does not include entries that were removed or entered in error. Problem Status Onset Problem Date of Comments Source Date Type Resolution allergy to bugs Inactive Condition DoD 017 tobacco use Inactive Condition DoD 017 red blood in bowel Inactive Condition D oD movement 017 (hematochezia) abdominal pain Inactive Condition DoD feels crampy / 017 colicky forearm strain Inactive Condition DoD left 017 Need For Inactive Condition [facility] Vaccination Hepatitis A And Hepatitis B Need For Inactive Condition [facility] Vaccination Against Influenza Need For Inactive Condition [facility] Vaccination Against Viral Diseases visit for: Active Condition [facility] services physical accession visit: Inactive Condition [facility] ears/hearing exam for hearing conservation, treatment Cervical Active Condition Dec 22 LD radiculopathy 2020 Entered By: LUIS SELBY Comment: DJD, C-Spine; Radicular Sx L UE; Chiropractor Helps Dec 22, 2020 Entered By: LUIS SELBY Comment: X-Rays, C-Spine Done Outside [place] Internal Active Condition Dec 22 LD hemorrhoids 2020 Entered By: LUIS SELBY Comment: Diagnostic Colonoscopy Done 1999-Teens; Had Blood Stool; Dec 22, 2020 Entered By: LUIS SELBY Comment: Colonoscopy Neg CA; Dx was Int Hemorrhoids Sleep apnea Active Condition Dec 22 IELD 2020 Entered By: LUIS SELBY Comment: Get Sleep Study Fall 2020 Diagnosis: Active Diagnosis [place] ICD-10-CM Z23 Encounter for immunizationwith Provider Comments: Encounter for Immunization Diagnosis: Active Diagnosis [place] ICD-10-CM G47.30 Sleep apnea, unspecifiedwith Provider Comments: Sleep apnea ([facility] [[email or web address]] [id number]) Medications Combined list of outpatient medications from Department of Defense and Veterans Affairs facilities. Medications provided include 1) outpatient medications from the last 15 months, and 2) patient-reported medications. Medication Details Route Status Patient Prescription Prescription Last Ordering Order Source Instructions Expires Number Dispense Provider Date Date CLINDAMYCIN Active [id number] GUL, 11/01/ Pharmac HCL 1 2020 y Data (CLINDAMYCI Transac N HCL), tion 300MG, Service CAPSULE, Facilit ORAL, y [facility], 100 ea. BOTTLE Allergies, Adverse Reactions, Alerts Combined list of allergies from Department of Defense and Veterans Affairs facilities. It does not include entries that were removed or entered in error. Substance Category Reaction Severity Reaction Status Date Comments S ource type Reported No Known Drug Drug active 05/05/2013 [place] in Allergies allergy allergy [facility], [place], [place] Immunizations Combined list of available immunizations from the Department of Defense and Veterans Affairs facilities. Immunization Series Date Administered Site Reaction Lot CVX Drug St atus Comments Source Given By Number Code Vice President Of Instruction COVID-19 2 complet MOD; SP RINGF (MODERNA), 2020 ed [id number]; IELD MRNA, LNP-S, 02 PF, 100 MCG 2 OR 50 MCG DOSE COVID-19 1 complet MOD; SP RINGF (MODERNA), 2020 ed [id number]; IELD MRNA, LNP-S, 02 PF, 100 1 MCG/0.5 ML DOSE INFLUENZA, complet Vet [facility] SEASONAL, 2017 ed states CNT RL INJECTABLE had done [facility] in [facility] [employer] [facility] anthrax 1 05/29/ [id number] Emergent complet anth rax DoD vaccine 2017 BioDefense ed vaccine Operations [place] (MIP) typhoid Vi 1 05/29/ [id number] 101 Sanofi complet typh oid DoD capsular 2017 Pasteur (PMC) ed Vi polysaccharid capsul ar e vaccine polysacch aride vaccine Influenza, 1 12/22/ [id number] 140 Other (OTH) comple t Influenza DoD seasonal, 2016 ed , injectable, seasonal , preservative injecta bl free e, preservat saundra free Influenza, 1 01/22/ [id number] 140 Other (OTH) complet Influenza DoD seasonal, 2014 ed , injectable, seasonal , preservative injecta bl free e, preservat saundra free hepatitis B 3 01/02/ [id number] 43 Other (OTH) complet hepatitis DoD vaccine, 2013 ed B adult dosage vaccine , adult dosage hepatitis A 3 01/02/ [id number] 52 Other (OTH) complet hepatitis DoD vaccine, 2013 ed A adult dosage vaccine , adult dosage Influenza, 1 01/02/ [id number] 140 SmithKline complet I nfluenza DoD seasonal, 2013 ([facility]) ed , injectable, seasonal , preservative injecta bl free e, preservat saundra free Influenza, 1 11/28/ [id number] 140 SmithKline complet Influenza DoD seasonal, 2013 ([facility]) ed , injectable, seasonal , preservative injecta bl free e, preservat saundra free hepatitis A 2 05/05/ [id number] 104 SmithKline complet hepatitis DoD and hepatitis 2013 ([facility]) ed A and B vaccine hepatitis B vaccine measles, 1 03/13/ UNK 03 Unknown (UNK) Not me asles, DoD mumps and 2014 Given mumps and rubella virus rubell a vaccine virus vaccine varicella 1 03/13/ UNK 21 Unknown (UNK) Not v aricella DoD virus vaccine 2013 Given virus vaccine hepatitis A 1 03/13/ [id number] 104 SmithKline complet hepatitis DoD and hepatitis 2013 ([facility]) ed A and B vaccine hepatitis B vaccine influenza, 1 03/13/ [id number] 149 CSL complet influ keya DoD live, 2013 Biotherapies, ed , live , intranasal, Inc. (CSL) int ranasa quadrivalent l, quadrival ent poliovirus 1 03/11/ [id number] 10 Sanofi complet kraig oviru DoD vaccine, 2013 Pasteur (PMC) ed s inactivated vaccine, inactivat ed meningococcal 1 03/11/ [id number] 114 SmithKline comp let meningoco DoD polysaccharid 2013 ([facility]) ed ccal e (groups A, polysac ch C, Y and aride W-135) (groups diphtheria A, C, Y toxoid and conjugate W-135) vaccine diphtheri (MCV4P) a toxoid conjugate vaccine (MCV4P) tetanus 1 [id number] 115 Sanofi complet tetanus DoD toxoid, 2013 Pasteur (PMC) ed toxo id, reduced reduced diphtheria diphtheri toxoid, and a toxoid , acellular and pertu is acellular vaccine, pertussis adsorbed vaccine, adsorbed Adenovirus, 1 [id number] 143 Sepulveda complet Virgie noviru DoD type 4 and 2014 5 Laboratories ed s, type 4 type 7, live, (BRR) and ty pe oral 7, live, oral TD(ADULT) complet DOD V A UNSPECIFIED 2014 ed CN TRL FORMULATION [facility] [place] [facility] Influenza, 1 [id number] 140 MedImmune, complet Influenza DoD seasonal, 2013 Inc. (MED) ed , injectable, seasonal , preservative injecta bl free e, preservat saundra free Encounters Combined list of: 1) Encounters from Department of Veterans Affairs facilities going back up to the last 18 months. 2) Encounters from the Department of Defense facilities going back up to 280 months. Location Location Encounter Encounter Reason Attending ADM MO Stat us Disposition Source Details Type Number For Provider Date Date Visit OUTPATIENT [id number] Notes ELIDIA, 03/12 Release d w/o Yemi Entered NALINI Limitations AC H, by: ATUL Costello A Y (Mar Hearing 2013 Program 1154 ) ------- ------- ------- ------- -- hearing test OUTPATIENT [id number] Notes TRISH 03/13 Relea sed w/o Yemi Entered Limitations A , by: AVANI Jones RA N (Mar ption 2013 Station 0757 ) ------- ------- ------- ------- -- IMM OUTPATIENT [id number] ELIDIA 03/13 Release d w/o Yemi LUNA [facility]itations [facility] [place] p[facility] Station [facility]omet ry) OUTPATIENT [id number] Notes GABBY, 05/05 Released w/o Yemi Entered CECE Limitations A , by: HEATHER Clark L ([facility]) 2013 0935 ------- ------- ------- ------- -- IMM-TWI N OUTPATIENT [id number] Notes CARLEE, 05/29 Released w /o [facility] Entered ALICE Limitations E l by: Nery(SR [facility]) 2016 1309 ------- ------- ------- ------- -- MOB OUTPATIENT [id number] Theater 09/05 Released Theater with Facilit Work/Duty y Limitations OUTPATIENT [id number] Theater 10/14 Released w/o Theater Limitations Facil it y OUTPATIENT [id number] Theater 10/15 Released w/o Theater Provider Limitations Facil it y OUTPATIENT [id number] Theater 10/16 Released w/o Theater Provider Limitations Facil it y OUTPATIENT [id number] Theater 12/30 Released w/o Theater Provider Limitations Facil it y OUTPATIENT [id number] Bhargavi TREVINO, 04/16 Released w/o [facility] Entered Limitations El by: Nery(SR LV Marrero S,ARNULFO Hearing [place] Apr ) 2017 07 ------- ------- ------- ------- -- DEMOB B - [id number] RE OUTPATIENT [id number] Notes ALESHIA, 04/16 Released w/o [facility] Entered Limitations El by: Nery(SR SYMONE HANKINS [facility]) 2017 1124 ------- ------- ------- ------- -- MIL DEMOB Outpatient [id number] 10/31 [id number] [place] [facility] Outpatient [id number] 11/16 [facility] Encounter [id number] /2021 [facility] [id number] 11/22 [facility] Encounter [id number] /2021 [facility] [place] [facility] [facility] Outpatient [id number] 11/23 [facility] Encounter [id number] /2021 [facility] [place] [facility] Outpatient [id number] 12/02 [facility] Encounter [id number] /2021 [facility] [place] [facility] Outpatient [id number] 12/06 [facility] Encounter [id number] [facility] [place] [facility] OFFICE O/P [id number] Diagnos BERT SELBY 12/22 [place] EST LOW [id number] is: N IELD 20-29 MIN 51 ICD-10- CM G47.30 Sleep apnea, unspeci fied
with Provide r Comment s: Sleep apnea (SCT [id number] 6) Outpatient [id number] 12/30 SPR[facility] NGF Encounter [id number] IELD 61 Outpatient [id number] 01/04 [id number] [place] [facility] ADM [id number] Diagnos KORFHAGE-P 01/10 SP RINGF SARSCOV2 [id number] is: ALMA GRANADOS I ELD 100MCG/0.5 51 ICD-10- O ML1ST CM Z23 Encount er for immuniz ation<b r/>with Provide r Comment s: Encount er for Immuniz ation Outpatient [id number] 01/20 SPR[facility] NGF Encounter [id number] IELD 24 ADM [id number] Diagnos GHAZAL FRANCOS 02/21 SP RINGF SARSCOV2 [id number] is: VANESSA IELD 100MCG/0.5 27 ICD-10- ML2ND CM Z23 Encount er for immuniz ation<b r/>with Provide r Comment s: Encount er for Immuniz ation Outpatient [id number] 02/21 [facility] Encounter [id number] [facility] [place] [facility] Procedures Combined list of: 1) Procedures from Department of Veterans Affairs facilities going back up to the last 18 months, not all VA non-surgical procedures are included; 2) All procedures from the Department of Defense facilities. Procedure Procedure Type Code Date Perfomer Comments Sourc e ADMINISTRATION OF Do D PATIENT-FOCUSED 018 HEALTH RISK ASSESSMENT INSTRUMENT (EG, HEALTH HAZARD APPRAISAL) WITH SCORING AND DOCUMENTATION, PER STANDARDIZED INSTRUMENT TYPHOID VACCINE, [facility] CAPSULAR 017 POLYSACCHARIDE (VICPS), FOR INTRAMUSCULAR USE IMMUNIZATION [facility] ADMINISTRATION 014 (INCLUDES PERCUTANEOUS, INTRADERMAL, SUBCUTANEOUS, OR INTRAMUSCULAR INJECTIONS); 1 VACCINE (SINGLE OR COMBINATION VACCINE/TOXOID) ADENOVIRUS [facility] VACCINE, TYPE 7, 014 LIVE, FOR ORAL USE PHYS/OTH QUALIFIED D oD HEALTH CARE 014 PROFESSIONAL QUALIFIED,EDUCATIO N,TRAIN,LICENSURE/ REGULATION (WHEN APPLICABLE) EDUC SER RENDERED TO PATS IN A GRP SETTING (EG,,OBESI TY,OR DIABETIC INSTRUCT) Prev Medicine Prev Medicine 33812 Do Arnulfo MONK Admin Of Health Admin Of Health 018 AMERICO Risk Questionnaire Risk Questionnaire Patient-Focused Patient-Focused Threshold Threshold 0208T Delilah TREVINO Audiogram (Pure Audiogram (Pure 018 JR Tone) Automated Tone) Automated Influenza Split Influenza Split 22853 Delilah MONK Virus Vaccine IM Virus Vaccine IM 018 AMERICO With Preservative With Preservative Quadrivalent Quadrivalent 0.50mL Dosage 0.50mL Dosage Immunization Immunization 73659 [facility] Administration By Administration By 018 AMERICO Injection, One Injection, One Vaccine Vaccine Psychotherapy Psychotherapy 47201 Theater Do D Individual Individual 017 Provider Approximately 45 Approximately 45 Minutes Minutes Typhoid Vaccine [place] Vi [address] [facility] Capsular Capsular 017 ALICE S Polysaccharide, Polysaccharide, For Intramus Use For Intramus Use Anthrax Vaccine Anthrax Vaccine 09149 [facility] For Subcutaneous For Subcutaneous 017 ALICE S Or Intramuscular Or Intramuscular Use Use Hepatitis A And Hepatitis A And [address] [facility] Hepatitis B 014 TESS A (Intramuscular (Intramuscular Use) Adult Dosage Use) Adult Dosage Immunization Immunization 42353 MAURICE [facility] Administration By Administration By 014 TESS A Injection, One Injection, One Vaccine Vaccine Vaccines Vaccines 03263 TRISH, Kathryn single vaccine Do D Adenovirus Type 4 Adenovirus Type 4 014 NATALIIA Mills dos e Live, For Oral Use Live, For Oral Use ad ministered orally. Vaccines Vaccines 06771 TRISH, Kathryn single vaccine Do D Adenovirus Type 7 Adenovirus Type 7 014 NATALIIA T dos e Live, For Oral Use Live, For Oral Use ad ministered orally. Immunization Admin Immunization Admin 36341 Delilah CHAMBERS Intranasal / Oral Intranasal / Oral 014 NATALIIA T Each Additional Each Additional Vaccine Vaccine Immunization Admin Immunization Admin 79040 Delilah CHAMBERS By Intranasal / By Intranasal / 014 NATALIIA T Oral Route One Oral Route One Vaccine Vaccine Influenza Virus Influenza Virus 79703 TRISH, Flumist : Each [facility] Vaccine Live Vaccine Live 014 NATALIIA T sprayer conta ins Attenuated Attenuated a single dose of Intranasal Intranasal Flumist; Quadrivalent Quadrivalent approximately one-half of the contents was administered into each nostril. Patient was observed for 15 min with no adverse reactions. Immunization Immunization 70826 Delilah CHAMBERS Administration By Administration By 014 NATALIIA T Injection, Each Injection, Each Additional Vaccine Additional Vaccine Physician Delilah CHAMBERS Supervised 014 NATALIIA T Injection Intramuscular Antibiotic Tdap Vaccine Tdap Vaccine 12728 TRISH, Visit for an IM DoD 014 NATALIIA T injection of 0.5mL of Boostrix (Tetanus and Diphtheria Toxoids and Acellular Pertussis). Was given in the Right Deltoid. Patient was observed for 15 min with no adverse reactions. Meningococcal TRISH, Visit for an IM [facility] Polysaccharide 014 NATALIIA T injection of Diphtheria Toxoid 0.5mL of Conjugate Vaccine Meningococca l Vaccine (Menactra). Was given in the Left Deltoid. Patient was observed for 15 min with no adverse reactions. Vaccines Viral Vaccines Viral 88640 TRISH, Visit for an IM [facility] Polio, Inactivated Polio, Inactivated 014 NATALIIA T i njection of 0.5mL of IPOL (Poliovirus Vaccine Inactivated). Was given in the Right Deltoid. Patient was observed for 15 min with no adverse reactions. Hepatitis A And Hepatitis A And 33833 TRISH, Visit f or an IM [facility] Hepatitis B Hepatitis B 014 NATALIIA T injection of 1m L (Intramuscular (Intramuscular of Twinrix Use) Adult Dosage Use) Adult Dosage (Hep atitis A and B combination). Was given in the Right Deltoid. Patient was observed for 15 min with no adverse reactions. Injection, TRISH, Visit for an IM Do D penicillin g 014 NATALIIA T injection of 1.2 benzathine, million/units 100,000 units per 2 mL of Bicillin L-A (Penicillin G Benxathine injectable suspension). Was given in the Left upper quadrant, left buttock. Patient was observed for 15 min with no adverse reactions. Physician Physician 00105 Delilah BRENNER Supervised Group Supervised Group 014 NALINI Liang [facility]ometry Group 74468 Delilah BRENNER Testing Testing 014 NALINI Liang Ear mold/insert, Delilah BRENNER not disposable, 014 NALINI Liang any type Social History Combined list of available smoking, tobacco, and other social history from Department of Defense andVeterans Affairs facilities. Social History Type Response Date Comment Source Tobacco smoking VA-TOBACCO NEVER USED 12/22/2020 [facility] status MAIS History of tobacco LIFETIME NON-TOBACCO 09/21/2017 V A [facility] use [facility] This section is an [facility] empty social history section.
--- OUTSIDE RECORDS SUMMARY | 2022-01-18 22:39 | XMS_ITS ---
:1990 Author Organization [facility] Address [address] [place] [address] Care Team Providers Name Role Phone RAY MARQUES Unavailable Unavailable PROBLEMS Type Condition ICD9-CM AHS59-EV Onset Condition SNOMED Cod e Code Code Dates Status Problem Attention and R41.840 Active 251985 005 concentration deficit Problem Male erectile N52.9 Active 19790508 002 dysfunction, unspecified Problem Insomnia, G47.00 Active 200868398 unspecified Problem Body mass index Z68.33 Active 4433 [id number] (BMI) 33.0-33.9, adult ALLERGIES Substance Reaction Event Type Date Status cat dander Unknown Non Drug Allergy Nov, Active shellfish Unknown Non Drug Allergy Nov, Active rabbit Unknown Non Drug Allergy Nov, Active ENCOUNTERS Encounter Location Date Diagnosis [address] Nov, [place], [place] [address] Nov, Other mu scle spasm M62.838 [place], [place] ; Male erectile dysfunction, uns pecified N52.9 and Insomn ia, unspecified G47. [address] Oct, [place], [place] [address] Oct, [place], [place] [address] Oct, [place] [address] Oct, Encounte r for screening for [place] cardiovascular d isorders Z13.[address] Oct, [place], [place] [address] Jun, [place] [address] May, [place], [place] [address] Apr, Attentio n and concentration [place], [place] deficit R41.840 and Insomnia, unspec ified G47.[address] Apr, [place], [place] [address] Nov, Body mas s index (BMI) [place], [place] 33.0-33.9, adult Z68.33 [id number] Nov, [place], [place] [address] Oct, [place], [place] [address] Aug, Body mas s index (BMI) [place] 33.0-33.9, adult Z68.33 ; [address] Attention and co ncentration deficit R41.840 and Insomnia, unspec ified G47.[address] Aug, [place] IMMUNIZATIONS No Known Immunizations SOCIAL HISTORY Qualifiers Date Never Smoker REASON FOR REFERRAL FUNCTIONAL STATUS PLAN OF CARE Activity Details Follow Up 6 Months Reason: Future Test COMPREHENSIVE METABOLIC PANE L 20191106 Future Test LIPID PANEL 20191106 Future Test TESTOSTERONE, FREE AND TOTAL (MALES >15 YRS OLD) 20191106 VITAL SIGNS Heart Rate 76 /min 2020-11-16 Heart Rate 88 /min 2020-04-22 Heart Rate 72 /min 2019-11-06 Heart Rate 68 /min 2019-08-20 Weight 222.7 lbs 2020-11-16 Weight 216.2 lbs 2020-04-22 Weight 223.1 lbs 2019-11-06 Weight 209.3 lbs 2019-08-20 BMI 35.94 kg/m2 2020-11-16 BMI 34.89 kg/m2 2020-04-22 BMI 36.01 kg/m2 2019-11-06 BMI 33.78 kg/m2 2019-08-20 Height 66 in 2020-11-16 Height 66 in 2020-04-22 Height 66 in 2019-11-06 Height 66 in 2019-08-20 Respiratory Rate 12 /min 2019-11-06 Respiratory Rate 16 /min 2019-08-20 Blood pressure systolic 122 mm Hg 2020-11-16 Blood pressure diastolic 72 mm Hg 2020-11-16 MEDICATIONS Medication Instructions Dosage Frequency Start End Duration Statu s Date Date Adderall XR 30 Orally Once a 1 capsule 24h N ot-Takin MG day in the morning Clindamycin HCl Orally every 8 2 capsules 8h Oct, day (s) Not-Takin 300 MG hrs 2020 Ibuprofen 200 Orally Three 1 tablet 8h Acti ve MG times a day with food or milk as needed PROCEDURES No Known procedures RESULTS Name Result Date Reference Range Electromyography 2020-11-19 TESTOSTERONE, FREE, TOTAL AND BOUND 2020-11-16 TESTOSTERONE, TOTAL, LC/MS 392.6 TESTOSTERONE,FREE WEAKLY BOUND 64.4 TESTOSTERONE,FREE WEAKLY % 16.4 COMPREHENSIVE METABOLIC PANEL 2020-11-16 GLUCOSE 88 (70-99) BUN 19 (6-20) CREATININE 1.3 (0.7-1.2) SODIUM 141 (133-145) POTASSIUM 4.4 (3.6-5.2) CHLORIDE 102 (98-107) BICARBONATE 28 (22-29) ANION GAP 11 (4-17) ALBUMIN 4.8 (3.4-4.8) CALCIUM 9.7 (8.6-10.5) BILIRUBIN,TOTAL 0.6 (0-1.2) TOTAL PROTEIN 7.1 (6.2-8.2) AG RATIO 2.1 AST 25 (0-40) ALK PHOS 60 (40-129) ALT 31 (0-41) EST GFR NON 77 EST GFR 89 LIPID PANEL 2020-11-16 CHOLESTEROL, TOTAL 196 (<200) TRIGLYCERIDE 68 (<150) HDL CHOL 52 (>39) LDL CHOLESTEROL, CALCULATED 130 (0-1 30) NON HDL CHOLESTEROL (CALC) 144 (<160 ) REASON FOR VISIT 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 He is having He is having pain in his neck/back, and his left arm is weak. Pt also c/o having trouble sleeping. He also c/o low energy, RS appt for 05/11/2020 // called pt to but was routed to ; LVM, Pt has cough and would like to RS, f/u to be cleared to return to work. Pt dx w/ covid on 03/30/20. He did quarantine for 14 days. He needs a note that he's medically cleared to work, no restrictions.,Pt. needs medical clearance to return to work., Patient is here to establish with pcp. Pt. has not seen pcp in years. Insurance Providers [facility] Member Patient Patient Patient Patient Patient Subscriber Subscriber Subscriber Group Insurance Plan Plan Plan Plan ID Relationship Address Phone Name Date of ID Name Date of No Type Insurance Insurance Insurance Coverage to Subscriber Address Phone Name Dates [address] self [place] [id number] [address] [address] [phone] Health New self A nthilda [id number] [place] [address] OSMAR [address] [facility] [address] [facility] [address] Medicaid [phone] Medicaid self [place] 06 [id number] of [id number] [address] [place] [phone] [place]
[2022-01-18 22:52] LABS: MANUAL DIFF FLAG NO
[2022-01-18 22:53] LABS: Basophils Percent Auto 0.4 % (0-2); Eosinophils Absolute Auto 0.2 X10*3/uL (0.0-0.4); Eosinophils Percent Auto 2.1 % (0-4); Hematocrit 42.7 % (42.0-52.0); Hemoglobin 14.4 g/dl (14.0-18.0); Imm Gran Abs Auto 0.01 X10*3/uL (0.00-0.03); Imm Gran Pct Auto 0.1 % (0.0-0.4); Lymphocytes Absolute Auto 2.5 X10*3/uL (1.2-4.9); Mean Corpuscular HGB Conc 33.7 g/dl (31.0-36.0); Mean Corpuscular Volume 86.1 fL (80.0-98.0); Mean Platelet Volume 9.6 fL (9.4-12.4); Monocytes Absolute Auto 0.7 X10*3/uL (0.1-1.2); Monocytes Percent Auto 9.2 % (2-11); Neutrophils Absolute Auto 4.4 x10*3/uL (2.0-8.3); Neutrophils Percent Auto 56.2 % (45-73); Platelet Count 267 X10*3/uL (160-400); Red Blood Count 4.96 X10*6/uL (4.60-5.80); Red Cell Distribution Width 12.6 % (11.0-16.0); White Blood Count 7.8 X10*3/uL (4.8-10.8)
[2022-01-18 23:06] LABS: COVID-19 Test Negative (Negative)
[2022-01-18 23:30] LABS: Alanine Aminotransferase 24 U/L (0-40); Alkaline Phosphatase 53 U/L (39-117); Anion Gap 13 (12-20); Aspartate Amino Transferase 30 U/L (5-37); Blood Urea Nitrogen 20 mg/dL (9-16); C Reactive Protein 0.05 mg/dL (< or = 0.50); Calcium 9.2 mg/dL (8.4-10.2); Carbon Dioxide 27 mmol/L (22-29); Chloride 104 mmol/L (96-108); Creatinine Clr Calc Pharmacy 91.6; Estimated Glomerular Filt Rate > 60; Glucose Random 91 mg/dL (60-115); Sodium 140 mmol/L (135-145); Total Protein 6.7 g/dL (6.5-8.0)
[2022-01-18] MEDS: Ketorolac Tromethamine 15 MG/ML VIAL 30 MG IVPUSH (23:30)
[2022-01-18] MEDS: diphenhydrAMINE HCL 50 MG/ML VIAL 25 MG IVPUSH (23:30)
[2022-01-18] MEDS: Metoclopramide HCl 10 MG/2 ML VIAL IVPUSH (23:31)
[2022-01-18] MEDS: 0.9 % Sodium Chloride 1,000 ML 999 ML IV (23:31)
[2022-01-19 00:09] LABS: Erythrocyte Sedimentation Rate 2 MM/HR (0-15)
--- NOTE | 2022-01-19 00:35 | PC.NURSE ---
Discharge instructions reviewed with pt. Pt verbalizes understanding.
[2022-01-19 01:32] LABS: Albumin Level 4.2 g/dL (3.5-5.0)
== END 2022-01-19 00:36 | disposition home or self-care (01) ==
PROVIDERS: Physician Assistant; Emergency Provider Internal Medicine
DX: G43.909 Migraine, unspecified, not intractable, without status migrainosus (principal); Z20.822 Contact with and (suspected) exposure to COVID-19; Z79.899 Other long term (current) drug therapy
CPT/HCPCS: 70450; 80053; 83735; 85025; 85652; 86140; 87635; 96374; 96375; 99284; 99285; J1200; J1885; J2765